=== PATIENT | male | born 1960 | race Caucasian/White ===

== ENCOUNTER 2021-01-07 23:39 | Inpatient (IN) ==
[2021-01-07] MEDS ORDERED: Pantoprazole VIAL 40 MG VIAL IV ONE (23:44)
[2021-01-07] MEDS ORDERED: Pantoprazole 80 mg in NS BAG 80 MG/250 ML BAG IV ONE (23:44)
[2021-01-08 00:17] LABS: ABS Basophils 0.1 10^3/ul (0-0.2); ABS Eosinophils 0.3 10^3/ul (0-0.6); ABS Lymphocytes 2.6 10^3/ul (1.0-4.8); ABS Monocytes 1.5 10^3/ul (0-0.8); ABS Neutrophils 11.4 10^3/ul (1.5-7.7); Hematocrit 21 % (42-52); Hemoglobin 6.7 g/dL (14.0-18.0); Lymphocyte % 16.4 %; Mean Corpuscular HGB Conc 32 g/dL (31-36); Mean Corpuscular Hemoglobin 31 pg (27-31); Mean Corpuscular Volume 97 fL (80-94); Mean Platelet Volume 9.8 fL (7.4-10.4); Platelet Count 266 10^3/uL (150-450); Red Blood Count 2.14 10^6 /uL (4.18-5.48); Red Cell Distribution Width 15 % (10-15)
[2021-01-08 00:28] LABS: Albumin 3.1 g/dL (3.2-5.2); CO2 Carbon Dioxide 23 mmol/L (22-32); Calcium 8.2 mg/dL (8.6-10.3); Potassium 4.6 mmol/L (3.5-5.0); Sodium 142 mmol/L (135-145)
[2021-01-08 00:30] LABS: Anion Gap 7 mmol/L (2-11); Chloride 112 mmol/L (101-111)
[2021-01-08 00:35] LABS: ALT 7 U/L (7-52); AST 9 U/L (13-39); Albumin/Globulin Ratio 1.5 (1-3); Alkaline Phosphatase 48 U/L (35-149); Blood Urea Nitrogen 30 mg/dL (6-24); Globulin 2.1 g/dL (2-4); Glucose 145 mg/dL (70-100); Total Protein 5.2 g/dL (6.4-8.9)
[2021-01-08] MEDS ORDERED: Prothrombin Complex Conc. DOSE = Units Factor IX (nine) IV SLOW PU ONE (00:41)
[2021-01-08] MEDS ORDERED: Albuterol HFA INHALER 8 gm MDI INH PRN ×2 (01:42→13:24)
[2021-01-08 02:14] LABS: % Iron Saturation 22 % (15-55); Iron 65 ug/dL (50-212); Total Iron Binding Capacity 302 mcg/dL (250-450); Transferrin 216 mg/dL (203-362); Unsaturated Iron Binding < 287 ug/dL
[2021-01-08 02:20] LABS: Activated Partial Thrombo Time 29.4 seconds (26.0-38.0); INR 1.72 (0.86-1.15)
[2021-01-08 02:34] LABS: Ferritin 19.4 ng/mL (24-336)
[2021-01-08] MEDS: Mometasone/Formoter 200/5 MDI INH SCH ×2 (07:27→19:06)
[2021-01-08 08:12] LABS: Rapid COVID-19 Molecular Undetected (Undetected)
[2021-01-08 08:45] LABS: ABS Basophils 0.1 10^3/ul (0-0.2); ABS Eosinophils 0.2 10^3/ul (0-0.6); ABS Lymphocytes 2.4 10^3/ul (1.0-4.8); ABS Neutrophils 7.5 10^3/ul (1.5-7.7); Eosinophil % 1.4 %; Hematocrit 23 % (42-52); Hemoglobin 7.9 g/dL (14.0-18.0); Lymphocyte % 21.4 %; Mean Corpuscular HGB Conc 34 g/dL (31-36); Mean Corpuscular Hemoglobin 32 pg (27-31); Mean Corpuscular Volume 93 fL (80-94); Mean Platelet Volume 9.5 fL (7.4-10.4); Platelet Count 196 10^3/uL (150-450); Red Blood Count 2.49 10^6 /uL (4.18-5.48); Red Cell Distribution Width 15 % (10-15); White Blood Count 11.2 10^3/uL (3.5-10.8)
[2021-01-08 08:55] LABS: Urine Appearance Clear; Urine Bilirubin Negative (Negative); Urine Blood 1+ (Negative); Urine Color Yellow; Urine Glucose Negative (Negative); Urine Ketones Negative (Negative); Urine Nitrite Negative (Negative); Urine Protein Negative (Negative); Urine Specific Gravity 1.019 (1.002-1.030); Urine Urobilinogen Negative (Negative)
[2021-01-08 09:06] LABS: Magnesium 1.7 mg/dL (1.9-2.7); Phosphorus 2.9 mg/dL (2.5-5.0); Potassium 4.7 mmol/L (3.5-5.0)
[2021-01-08 09:16] LABS: Urine Bacteria Absent (Absent); Urine Red Blood Cell Trace(0-2/hpf) (Absent); Urine Squamous Epithelial Cell Present (Absent); Urine White Blood Cell Trace(0-5/hpf) (Absent)
[2021-01-08] MEDS ORDERED: Magnesium Sulfate IV 3 GM in NS 0.9% 100 ml BAG 100 ML IVPB ONE (10:00)
[2021-01-08] MEDS: Lactated Ringers 1000 ml BAG 1,000 ML IV SCH (10:15)
[2021-01-08] MEDS: Pantoprazole 80 mg in NS BAG 80 MG/250 ML BAG IV SCH ×2 (11:01→20:24)
[2021-01-08] MEDS ORDERED: Midazolam 10 mg/10 ml VIAL 1 mg/ml 10 ml VIAL (10 mg) ONE (13:24)
[2021-01-08] MEDS ORDERED: diPHENhydraMINE IV 50 MG/ML 1 ml VIAL (BENADRYL) ONE (13:25)
[2021-01-08] MEDS ORDERED: fentaNYL 100 mcg/2 ml 50 MCG/ML VIAL ONE (13:25)
[2021-01-09 04:41] LABS: Hematocrit 21 % (42-52); Hemoglobin 7.1 g/dL (14.0-18.0); Mean Corpuscular HGB Conc 34 g/dL (31-36); Mean Corpuscular Hemoglobin 31 pg (27-31); Mean Corpuscular Volume 93 fL (80-94); Mean Platelet Volume 9.5 fL (7.4-10.4); Platelet Count 197 10^3/uL (150-450); Red Blood Count 2.27 10^6 /uL (4.18-5.48); Red Cell Distribution Width 15 % (10-15); White Blood Count 11.4 10^3/uL (3.5-10.8)
[2021-01-09 04:57] LABS: Calcium 8.1 mg/dL (8.6-10.3); Potassium 3.9 mmol/L (3.5-5.0)
[2021-01-09] MEDS: Pantoprazole 80 mg in NS BAG 80 MG/250 ML BAG IV SCH (06:04)
[2021-01-09] MEDS: Lactated Ringers 1000 ml BAG 1,000 ML IV SCH (06:04)
[2021-01-09] MEDS: Mometasone/Formoter 200/5 MDI INH SCH ×2 (07:42→18:55)
[2021-01-09 15:09] LABS: Hematocrit 21 % (42-52); Hemoglobin 7.5 g/dL (14.0-18.0)
[2021-01-09] MEDS: Morphine 2 MG/ML SYRINGE IV PRN ×3 (15:25→23:27)
[2021-01-09] MEDS: Pantoprazole VIAL 40 MG VIAL IV SCH (19:22)
[2021-01-10] MEDS: Lactated Ringers 1000 ml BAG 1,000 ML IV SCH (00:17)
[2021-01-10] MEDS: Morphine 2 MG/ML SYRINGE IV PRN ×5 (03:28→20:14)
[2021-01-10 05:16] LABS: ABS Eosinophils 0.2 10^3/ul (0-0.6); ABS Lymphocytes 1.8 10^3/ul (1.0-4.8); ABS Monocytes 1.1 10^3/ul (0-0.8); ABS Neutrophils 8.5 10^3/ul (1.5-7.7); Hematocrit 21 % (42-52); Lymphocyte % 15.4 %; Mean Corpuscular HGB Conc 34 g/dL (31-36); Mean Corpuscular Hemoglobin 32 pg (27-31); Mean Corpuscular Volume 95 fL (80-94); Mean Platelet Volume 9.1 fL (7.4-10.4); Platelet Count 198 10^3/uL (150-450); Red Blood Count 2.21 10^6 /uL (4.18-5.48); Red Cell Distribution Width 14 % (10-15); White Blood Count 11.6 10^3/uL (3.5-10.8)
[2021-01-10 05:32] LABS: Calcium 8.3 mg/dL (8.6-10.3); Magnesium 1.7 mg/dL (1.9-2.7); Potassium 3.6 mmol/L (3.5-5.0)
[2021-01-10] MEDS ORDERED: Magnesium Sulfate 2 gm BAG 2 GM/50 ML BAG IVPB ONE (06:00)
[2021-01-10] MEDS: Mometasone/Formoter 200/5 MDI INH SCH ×2 (07:59→20:09)
[2021-01-10] MEDS: Pantoprazole VIAL 40 MG VIAL IV SCH ×2 (08:19→20:14)
[2021-01-10 14:25] LABS: Hematocrit 23 % (42-52); Hemoglobin 7.9 g/dL (14.0-18.0)
[2021-01-10] MEDS: PEG 3000 GI LAVAGE 1 GALLON PO SCH (17:59)
[2021-01-11] MEDS: Morphine 2 MG/ML SYRINGE IV PRN ×4 (00:21→12:38)
[2021-01-11 04:37] LABS: ABS Basophils 0.1 10^3/ul (0-0.2); ABS Eosinophils 0.3 10^3/ul (0-0.6); ABS Monocytes 0.8 10^3/ul (0-0.8); ABS Neutrophils 5.5 10^3/ul (1.5-7.7); Eosinophil % 2.9 %; Hematocrit 26 % (42-52); Hemoglobin 8.7 g/dL (14.0-18.0); Lymphocyte % 23.7 %; Mean Corpuscular HGB Conc 34 g/dL (31-36); Mean Corpuscular Hemoglobin 33 pg (27-31); Mean Corpuscular Volume 95 fL (80-94); Mean Platelet Volume 9.1 fL (7.4-10.4); Platelet Count 242 10^3/uL (150-450); Red Blood Count 2.68 10^6 /uL (4.18-5.48); Red Cell Distribution Width 15 % (10-15); White Blood Count 8.6 10^3/uL (3.5-10.8)
[2021-01-11 05:07] LABS: Calcium 8.6 mg/dL (8.6-10.3); Magnesium 1.8 mg/dL (1.9-2.7); Phosphorus 3.3 mg/dL (2.5-5.0); Potassium 3.6 mmol/L (3.5-5.0)
[2021-01-11] MEDS: PEG 3000 GI LAVAGE 1 GALLON PO SCH (06:00)
[2021-01-11] MEDS ORDERED: Magnesium Sulfate 2 gm BAG 2 GM/50 ML BAG IVPB ONE (07:37)
[2021-01-11] MEDS ORDERED: KCL 20 MEQ/100 ML IVPREMIX 20 MEQ/100 ML BAG IV ONE (07:37)
[2021-01-11] MEDS: Mometasone/Formoter 200/5 MDI INH SCH ×2 (07:51→23:13)
[2021-01-11] MEDS: Pantoprazole VIAL 40 MG VIAL IV SCH ×2 (08:09→20:22)
[2021-01-11] MEDS ORDERED: fentaNYL 100 mcg/2 ml 50 MCG/ML VIAL ONE (14:23)
[2021-01-11] MEDS ORDERED: Midazolam 10 mg/10 ml VIAL 1 mg/ml 10 ml VIAL (10 mg) ONE (14:23)
[2021-01-12 05:00] LABS: ABS Basophils 0.1 10^3/ul (0-0.2); ABS Eosinophils 0.3 10^3/ul (0-0.6); ABS Lymphocytes 1.7 10^3/ul (1.0-4.8); ABS Monocytes 0.8 10^3/ul (0-0.8); ABS Neutrophils 6.5 10^3/ul (1.5-7.7); Eosinophil % 3.6 %; Hematocrit 26 % (42-52); Hemoglobin 8.7 g/dL (14.0-18.0); Lymphocyte % 17.9 %; Mean Corpuscular HGB Conc 34 g/dL (31-36); Mean Corpuscular Hemoglobin 32 pg (27-31); Mean Corpuscular Volume 95 fL (80-94); Mean Platelet Volume 9.1 fL (7.4-10.4); Platelet Count 256 10^3/uL (150-450); Red Blood Count 2.69 10^6 /uL (4.18-5.48); Red Cell Distribution Width 15 % (10-15); White Blood Count 9.3 10^3/uL (3.5-10.8)
[2021-01-12 05:20] LABS: Calcium 8.8 mg/dL (8.6-10.3); Potassium 3.9 mmol/L (3.5-5.0)
[2021-01-12] MEDS: Mometasone/Formoter 200/5 MDI INH SCH (07:13)
[2021-01-12] MEDS: Pantoprazole VIAL 40 MG VIAL IV SCH (07:24)
[2021-01-12 13:21] VITALS: BP 149/79
== END 2021-01-12 13:15 | disposition home or self-care (01) | DRG 244 ==
LOC: ED 23:39 → ICU 01-08 01:30 → SUATTDRO 01-08 01:30 → ICU 01-08 04:53
PROVIDERS: ADMIT Internal Medicine; ATTEND Internal Medicine Critical Care Medicine